=== PATIENT | male | born 1935 | race Caucasian/White ===

== ENCOUNTER 2016-10-14 01:13 | Inpatient (IN) ==
--- NOTE | 2016-10-14 03:00 | Emergency Department Note ---
Arrival - Arrival Chief Complaint: Syncope Stated Complaint: syncope ED Nursing Triage Note: pt was watching tv and had a sycopal episode witnessed by pt's family. 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 He went to a local emergency department where they found that his hemoglobin 6 his hematocrit was 21. His initial blood pressure was 90/50. He was given fluid resuscitation and sent to [facility] for blood transfusion and further evaluation. Allergies/Adverse Reactions: Allergies Allergy/AdvReac Type Severity Reaction Status Date / Time No Known Allergies Allergy Verified 09/15/16 14:26 Home Medications: Home Medications Medication Instructions Recorded Confirmed Type Docusate Sodium Cap [Colace Cap] 100 mg PO BEDTIME 09/15/16 10/14/16 History Docusate Sodium Cap [Colace Cap] 100 mg PO DAILY PRN 09/15/16 10/14/16 History Ergocalciferol (Vitamin D2) 50,000 units PO Q7DAY 09/15/16 10/14/16 History [Vitamin D2] Febuxostat [Uloric] 40 mg PO DAILY 09/15/16 10/14/16 History Finasteride [Proscar] 5 mg PO DAILY 09/15/16 10/14/16 History Iron,Carbonyl/Ascorbic Acid 1 tablet PO DAILY 09/15/16 10/14/16 History [Icar-C Tablet] Levothyroxine Tab [Synthroid Tab] 50 mcg PO DAILY 09/15/16 10/14/16 History Lisinopril 5 mg PO DAILY 09/15/16 10/14/16 History Metoprolol Tartrate 50 mg PO DAILY 09/15/16 10/14/16 History Tamsulosin [Flomax] 0.4 mg PO DAILY 09/15/16 10/14/16 History Pantoprazole Tab [Protonix Tab] 40 mg PO DAILY #30 tablet 09/25/16 10/14/16 Rx Ondansetron [Ondansetron Odt] 1 PO RT Q12H 10/14/16 History Prochlorperazine Tab [Compazine 1 PO Q4HR PRN 10/14/16 History Tab] Review of System - Review of System Constitutional: Absent: fever, night sweats Eyes: Absent: redness, vision change Head/Ears/Nose/Throat: Absent: epistaxis Respiratory: Absent: respiratory distress Cardiovascular: Absent: dyspnea on exertion, edema Gastrointestinal: Absent: diarrhea, constipation Genitourinary male: Absent: hematuria, discharge Musculoskeletal: Absent: joint swelling, lower back pain Skin: Absent: change in color, change in hair/nails Neurological: Absent: numbness, paresthesias Psychiatric: Absent: anxiety, suicidal thoughts Endocrine: Absent: heat intolerance, polydipsia Hematological/Lymphatic: Absent: easy bruising, lymphadenopathy Allergic/Immunologic: Absent: urticaria, itchy eyes Medical,Surgical,& Family Hx - Medical History Cardio: History of: Hypertension, Cardiovascular Problems (hx of atrial flutter) Comment Only: [place] (stents and triple bypass) Psychological: History of: Anxiety Disorders (takes meds) Neurology: No history of: Seizures HEENT: History of: Glaucoma (prior cataract surgery bilateral.) Endocrine: History of: Diabetes Mellitus (NIDDM) Genitourinary: History of: Prostate Problems Hematology: History of: Anemia - Surgical History Cardiac Surgeries: Sugical HX of: Cardiac Surgery (stents and triple bypass.) Abdominal Surgeries: Surgical HX of: Hernia Repair Orthopedic Surgeries: Surgical HX of;: Total Knee Replacement (left) - Social History Smoking Status: Never smoker Frequency of Alcohol Use: None Type of Drug Use: None Exam Vital Signs: Vital Signs Temperature 99.3 F 10/14/16 01:23 Pulse Rate 99 H 10/14/16 01:23 Respiratory Rate 16 10/14/16 01:39 Blood Pressure 106/62 10/14/16 01:23 O2 Sat by Pulse Oximetry 96 10/14/16 01:23 - General Exam limited due to: ALOC - Head Head exam: Present: atraumatic - Eye Eye exam: Present: PERRL, EOMI - ENT ENT exam: Present: normal exam - Neck Neck exam: Present: normal inspection - Chest Chest inspection: Present: normal inspection - Respiratory Respiratory exam: Present: normal lung sounds bilaterally - Cardiovascular Cardiovascular exam: Present: regular rate, normal rhythm - Abdominal Exam Abdominal exam: Present: soft, normal bowel sounds - Back Exam Back exam: Present: normal inspection - Neurological Exam Neurological exam: Present: alert, oriented X3 - Psychiatric Psychiatric exam: Present: normal affect, normal mood - Skin Skin exam: Present: warm, dry Course Course Narrative: The case was discussed with the oncologist who agreed to admit the patient and transfuse him as well as manage his oncology problems Disposition Clinical Impression: Acute myelogenous leukemia, Severe anemia, Syncope Disposition: Still a Patient Additional Instructions: The case was discussed with the oncologist who agreed to admit the patient and transfuse him as well as manage his oncology problems
[2016-10-14] MEDS ORDERED: SODIUM CHLORIDE 0.9% 250 ML IV PRN ×2 (03:05→08:56)
[2016-10-14] MEDS ORDERED: LACTULOSE 20 GM/30 ML UDCUP PO PRN (03:08)
[2016-10-14] MEDS ORDERED: chlorproMAZINE 25 MG TABLET PO PRN (03:08)
[2016-10-14] MEDS ORDERED: guaiFENesin 200 MG/10 ML UDCUP PO PRN (03:08)
[2016-10-14] MEDS ORDERED: LOPERAMIDE 2 MG CAPSULE PO PRN ×2 (03:08)
[2016-10-14] MEDS ORDERED: MYLANTA/LIDO VISC 2:1 300 ML BOTTLE SWISH/SPIT PRN (03:08)
[2016-10-14] MEDS ORDERED: chlorproMAZINE INJ 50 MG in SODIUM CHLORIDE 0.9% 100 ML IV PRN (03:08)
[2016-10-14] MEDS ORDERED: MAGNESIUM HYDROXIDE SUSP 30 ML UDCUP PO PRN (03:08)
[2016-10-14] MEDS ORDERED: ACETAMINOPHEN 325 MG TABLET PO PRN (03:08)
[2016-10-14] MEDS ORDERED: traMADol 50 MG TABLET PO PRN (03:08)
[2016-10-14] MEDS ORDERED: diphenhydrAMINE CAP 25 MG CAPSULE PO PRN (03:08)
[2016-10-14] MEDS ORDERED: ALPRAZolam 0.25 MG TABLET PO PRN (03:08)
[2016-10-14] MEDS ORDERED: ALUMINUM/MAGNES/SIMETH MAX STR 30 ML UDCUP PO PRN (03:08)
[2016-10-14] MEDS ORDERED: PROMETHAZINE INJ 25 MG in SODIUM CHLORIDE 0.9% 50 ML IV PRN (03:08)
[2016-10-14] MEDS ORDERED: chlorproMAZINE INJ 25 MG in SODIUM CHLORIDE 0.9% 100 ML IV PRN (03:08)
[2016-10-14] MEDS ORDERED: TEMAZEPAM 7.5 MG CAPSULE PO PRN (03:08)
[2016-10-14] MEDS ORDERED: BENZTROPINE 2 MG/2 ML AMP IV PRN (03:08)
[2016-10-14] MEDS ORDERED: MYLANTA/LIDO VISC 2:1 300 ML BOTTLE SWISH/SWAL PRN (03:08)
[2016-10-14 03:14] LABS: Basophils % 0.3 % (0.0-0.8); Hematocrit 22.7 VOL% (42.0-52.0); Hemoglobin 7.3 GM/DL (14.0-18.0); Immature Granulocytes % 1.4 %; Immature Granulocytes Absolute 0.04 #; Lymphocytes # 0.8 10*3/uL (1.4-4.0); Lymphocytes % 29.3 % (21.2-54.2); Mean Corpuscular HGB Conc 32.2 GM/DL (32-36); Mean Corpuscular Hemoglobin 32 PG (27-34); Mean Corpuscular Volume 98.3 FL (87-102); Mean Platelet Volume 13.1 FL (9.6-12.0); Monocytes # 1.2 10*3/uL (0.11-0.8); Monocytes % 42.5 % (1.7-12.7); NRBC # 0.04 10*3/uL; Neutrophils # 0.8 10*3/uL (1.4-7.4); Neutrophils % 26.5 % (38.7-73.9); Red Blood Count 2.31 MC/CUMM (3.8-5.5); Red Cell Distribution Width 17.9 % (9.3-17.3); White Blood Count 2.9 T/CUMM (4-12)
[2016-10-14 03:16] LABS: Platelet Count 19 T/CUMM (130-400)
--- NOTE | 2016-10-14 03:50 | EKG Report ---
Stationary ECG Study [facility] ER Test Date: 10/14/2016 2:10:16 AM Pat Name: GLEN PORRAS Department: Room: 422 Gender: M [employer] Effects Camera Operator: : [id number] Requested by: Sanjay Nathan Order Number: [id number] Reading MD: CHANTE HOFFMAN Intervals [place] Rate: 86 P: 999 NC: 0 QRS: 76 QRSD: 103 T: 161 QT: 318 QTc: 362 Interpretive Statements ATRIAL FIBRILLATION ST DEVIATION AND MODERATE T-WAVE ABNORMALITY, CONSIDER ANTEROLATERAL ISCHEMIA Electronically Signed On 10-14-16 16:17:45 CDT by CHANTE HOFFMAN [email or web address]
[2016-10-14 04:46] LABS: Band Neutrophils 2 % (0-10); Lymphocytes 73 % (20-55); Nucleated Red Blood Cells 2 (0-5); Platelet Estimate Decreased; Segmented Neutrophils 22 % (50-85); Total Cells Counted 100
[2016-10-14 04:47] LABS: Anisocytosis 1+; Basophilic Stippling Slight; Schistocytes Few
[2016-10-14] MEDS: SODIUM CHLORIDE 0.9% 1,000 ML IV SCH ×2 (05:55→21:21)
--- NOTE | 2016-10-14 07:32 | Oncology History&Physical ---
History of Present Illness Chief complaint: Syncope History of present illness: Mr. Crawford is a 81 year old male with acute myelogenous leukemia. He was started on Vidaza 150 mg subcu daily for 5 days beginning yesterday and he was anemic and I offered blood transfusion which he declined. He said that he would come back today. In the middle the night last night, he had a syncopal episode and was brought to the emergency room. He is admitted as outpatient observation presently for transfusion, a little further hydration and to continue Vidaza. I will plan to keep him at least overnight tonight while continuing his chemotherapy and transfusing him. 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 This is the reason he is receiving Vidaza. This is a very poor prognosis AML cytogenetically and because of the patient's other problems listed in his past medical history. Past medical history: He has no known allergies. His past medical history is positive for coronary artery disease, hypertension, hyperlipidemia, diabetes mellitus, congestive heart failure, gout, osteoarthritis, chronic pain and glaucoma. He also has a history of GERD, peripheral neuropathy, depression, hypothyroidism and kidney disease. He has been seen by Dr. Evans for his cardiac problems and Dr. Evans is aware of the patient's leukemia. Prior operations include a CABG, hemorrhoidectomy, knee replacement and hernia repair. Family history is positive for coronary artery disease in his brothers, lung cancer and one brother, coronary artery disease in his mother and father, lung cancer in a sister and cancer of unknown type and a sister. Social history he does not use alcohol. He is a former smoker. The patient's review of systems is downloaded into the electronic medical record from my office note which also is a portion of this patient's history and physical today. Positive review of systems includes decreased appetite, nasal congestion, irregular heartbeat and palpitations, chest pain that from his description could be angina, decreased appetite, heartburn and reflux, decreased urine output, dizziness and headaches, muscle weakness, anemia, leukopenia and thrombocytopenia. Physical examination: General: The patient is chronically ill-appearing but in no acute distress. Eyes: Lids and conjunctive are normal. ENT: Poor dentition. His hearing appears normal. His oral mucosa and pharynx are slightly dry. Neck: No masses. The thyroid is normal and the trachea is midline. Pulmonary: Chest motion is symmetrical with respiration and there is no tenderness. Breath sounds are coarse throughout without rubs, rales or rhonchi. Cardiovascular: Currently his heart rhythm is regular without murmur, gallop or rub. There is no jugular venous distention, clubbing or cyanosis. Abdomen: There are no abdominal masses, organomegaly, distention or tenderness. Musculoskeletal: He has arthritic changes in his hands and he is missing portions of a couple of digits. His gait has been unsteady. Neurologic: Cranial nerves II through XII are intact. There are no focal neurologic deficits. Nodes: No submental, cervical, supraclavicular or axillary adenopathy. Psychiatric: He has limited short-term memory although he is a very pleasant gentleman who on the surface appears fully oriented. Skin: He has ecchymoses below the elbows primarily but I see no petechiae. Diagnoses: Syncope secondary to anemia and multiple additional problems including COPD and cardiac disease. 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 Coronary artery disease HLD (hyperlipidemia) Hypertension Paroxysmal atrial flutter My plan currently is to continue Vidaza 150 mg subcu daily while transfusing him 2 units of packed red cells today. He may require platelet transfusions this week at some point. I will be checking lab work daily. Home Medications Medication Instructions Recorded Confirmed Type Docusate Sodium Cap [Colace Cap] 100 mg PO BID 09/15/16 10/14/16 History Ergocalciferol (Vitamin D2) 50,000 units PO Q7DAY 09/15/16 10/14/16 History [Vitamin D2] Febuxostat [Uloric] 40 mg PO DAILY PRN 09/15/16 10/14/16 History Finasteride [Proscar] 5 mg PO DAILY 09/15/16 10/14/16 History Iron,Carbonyl/Ascorbic Acid 1 tablet PO BID 09/15/16 10/14/16 History [Icar-C Tablet] Levothyroxine Tab [Synthroid Tab] 50 mcg PO DAILY 09/15/16 10/14/16 History Lisinopril 5 mg PO DAILY 09/15/16 10/14/16 History Metoprolol Tartrate 50 mg PO BID 09/15/16 10/14/16 History Tamsulosin [Flomax] 0.4 mg PO DAILY 09/15/16 10/14/16 History Hydrocodone/Acetaminophen 7.5 mg PO BID PRN 10/14/16 10/14/16 History [Hydrocodon-Acetaminoph 7.5-325] Ondansetron [Ondansetron Odt] 1 caplet PO RT Q12H 10/14/16 10/14/16 History Pantoprazole Tab [Protonix Tab] 40 mg PO DAILY 10/14/16 10/14/16 History Prochlorperazine Tab [Compazine 1 caplet PO QID PRN 10/14/16 10/14/16 History Tab] Allergies Allergy/AdvReac Type Severity Reaction Status Date / Time No Known Allergies Allergy Verified 10/14/16 05:49 Medical,Surgical,& Family Hx - Medical History Cardio: History of: Hypertension, Cardiovascular Problems (hx of atrial flutter) Comment Only: [place] (stents and triple bypass) Psychological: History of: Anxiety Disorders (takes meds) Neurology: No history of: Seizures HEENT: History of: Glaucoma (prior cataract surgery bilateral.) Endocrine: History of: Diabetes Mellitus (NIDDM) Genitourinary: History of: Prostate Problems Hematology: History of: Anemia Other: History of: Cancer (AML) - Surgical History Cardiac Surgeries: Sugical HX of: Cardiac Surgery (stents and triple bypass.) Abdominal Surgeries: Surgical HX of: Hernia Repair Orthopedic Surgeries: Surgical HX of;: Total Knee Replacement (left) - Social History Smoking Status: Never smoker Frequency of Alcohol Use: None Type of Drug Use: None Exam - Constitutional Vitals: Period Temp Pulse Resp BP Sys/Cisneros Pulse Ox Last 24 Hr 98.1 F-99.3 F 96-99 16-20 83-106/53-62 94-96 Results - Labs CBC & BMP: 10/14/16 02:33 10/14/16 02:33 Quality Measures - VTE Contraindication to Pharmacological VTE Prophylaxis: High Risk of Bleeding
[2016-10-14 07:45] LABS: Albumin 3.3 G/DL (3.4-5.0); Bilirubin,Total 0.7 MG/DL (0.2-1.0); Calcium 8.6 MG/DL (8.5-10.1); Magnesium 2.1 MG/DL (1.8-2.4); Osmolality,Calculated 282.8 MOS/KG (273-304); Total Protein 7.3 G/DL (6.4-8.3); Uric Acid 5.8 MG/DL (3.5-7.2)
--- NOTE | 2016-10-14 07:59 | Oncology Progress Note ---
Oncology Subjective PN Interval history: This is a progress note on dictated on October 13, 2016. I am copying it here because it was very difficult to find it and I wanted to be part of this patient 's chart for this admission. I recommended blood transfusion yesterday but he declined it and wanted to come back today. It does not appear that this note was readily available or easily accessible when the patient was seen in the emergency room earlier this morning. This is the reason I am copying this, for continuity of care. Acute myelogenous leukemia developing out of myelodysplastic syndrome: Mr. Crawford is here today for treatment of acute leukemia developing out of myelodysplastic syndrome. We are starting him on Vidaza. His AML is complicated by the fact that he developed from a myelodysplastic syndrome and by the fact that he has multiple additional diagnoses. White cell count today is 2200 with an absolute neutrophil count of 500 with a hemoglobin of 7.0 and a platelet count of 18,000. Anemia: He will be transfused 2 units of packed red cells today. Family history is positive for coronary artery disease in his brothers, lung cancer and one brother, coronary artery disease in his mother and father, lung cancer in a sister and cancer of unknown type and a sister. Social history he does not use alcohol. He is a former smoker. Past medical history diagnoses: Acute myelogenous leukemia with approximately 30-40% blasts: Leukopenia/neutropenia: Thrombocytopenia: Anemia: Peptic ulcer disease: Diabetes mellitus: Chronic renal failure, mild: Chronic anticoagulation we are discontinuing Eliquis on this patient and sending him home on low-dose aspirin, 81 mg daily. Coronary artery disease HLD (hyperlipidemia) Hypertension Paroxysmal atrial flutter On physical examination today he is his usual very pleasant self. General: He is chronically ill-appearing. Eyes: Normal lids and conjunctivae. ENT: Poor dentition. Trachea is midline. His hearing is normal. Lungs: Breath sounds are somewhat coarse with decreased breath sounds throughout the lung mcpherson and he has symmetrical chest motion with a prolonged expiratory phase of respiration. Cardiovascular: His heart rhythm is regular presently. No jugular venous distention or cyanosis. Abdomen: I cannot palpate his spleen. There are no abdominal masses or organomegaly. Musculoskeletal: He has significant arthritis of the hands. He also has some deformity of his fingers. Psychiatric: He appears to be fully oriented and alert with normal mood and affect. Neurologic: Cranial nerves II through XII are intact. There are no focal neurologic deficits. The plan is to give him 5 days a of the next 5 days and monitor him for toxicity. We will be transfusing packed red cells but we are going to give them tomorrow. He will possibly need platelets by transfusion before the end of the week. See orders. Exam - Constitutional Vitals: Period Temp Pulse Resp BP Sys/Cisneros Pulse Ox Last 24 Hr 98.1 F-99.3 F 96-99 16-20 83-106/53-62 94-96 Results - Labs CBC & BMP: 10/14/16 02:33 10/14/16 02:33 Quality Measures - VTE Contraindication to Pharmacological VTE Prophylaxis: High Risk of Bleeding
[2016-10-14] MEDS ORDERED: DEXAMETHASONE INJ 20 MG in SODIUM CHLORIDE 0.9% 50 ML IV ONE (08:20)
[2016-10-14] MEDS ORDERED: PROCHLORPERAZINE 10 MG TABLET PO PRN (08:36)
[2016-10-14] MEDS ORDERED: FEBUXOSTAT 80 MG TABLET PO PRN (08:36)
[2016-10-14] MEDS ORDERED: AZACITIDINE SUBCUT SCH ×3 (09:00)
[2016-10-14] MEDS ORDERED: ERGOCALCIFEROL 50,000 UNIT CAPSULE PO SCH (09:00)
[2016-10-14] MEDS: TAMSULOSIN 0.4 MG CAPSULE PO SCH (10:40)
[2016-10-14] MEDS: LISINOPRIL 5 MG TABLET PO SCH (10:41)
[2016-10-14] MEDS: LEVOTHYROXINE 50 MCG TABLET PO SCH (10:41)
[2016-10-14] MEDS: DOCUSATE SODIUM 100 MG CAPSULE PO SCH ×2 (10:41→21:19)
[2016-10-14] MEDS: IRON (CARBONYL)/VIT C/B12/FA TABLET PO SCH ×2 (10:41→21:20)
[2016-10-14] MEDS: PANTOPRAZOLE 40 MG TABLET PO SCH (10:41)
[2016-10-14] MEDS: METOPROLOL TARTRATE 50 MG TABLET PO SCH ×2 (10:41→21:20)
[2016-10-14] MEDS: FINASTERIDE 5 MG TABLET PO SCH (10:41)
[2016-10-14] MEDS: GRANISETRON 1 MG/1 ML VIAL IV SCH (10:49)
[2016-10-14] MEDS: DEXAMETHASONE INJ 20 MG in SODIUM CHLORIDE 0.9% 50 ML IV ONE ×2 (11:46→13:20)
[2016-10-14] MEDS: ONDANSETRON ODT 4 MG TABLET PO SCH ×2 (12:41→21:18)
[2016-10-14] MEDS: STERILE WATER SUBCUT SCH (12:42)
[2016-10-14] MEDS: AZACITIDINE SUBCUT SCH (12:42)
[2016-10-15] MEDS: ONDANSETRON 4 MG/2 ML VIAL IV PRN ×3 (02:58→19:43)
[2016-10-15] MEDS: SODIUM CHLORIDE 0.9% 1,000 ML IV SCH ×3 (06:13→19:43)
[2016-10-15 07:17] LABS: Basophils % 0.9 % (0.0-0.8); Hematocrit 24.7 VOL% (42.0-52.0); Hemoglobin 8.2 GM/DL (14.0-18.0); Immature Granulocytes % 1.3 %; Immature Granulocytes Absolute 0.03 #; Lymphocytes # 0.7 10*3/uL (1.4-4.0); Lymphocytes % 28.3 % (21.2-54.2); Mean Corpuscular HGB Conc 33.2 GM/DL (32-36); Mean Corpuscular Hemoglobin 32 PG (27-34); Mean Corpuscular Volume 95.4 FL (87-102); Monocytes # 0.8 10*3/uL (0.11-0.8); Monocytes % 33.9 % (1.7-12.7); NRBC # 0.05 10*3/uL; Neutrophils # 0.8 10*3/uL (1.4-7.4); Neutrophils % 35.6 % (38.7-73.9); Red Blood Count 2.59 MC/CUMM (3.8-5.5); Red Cell Distribution Width 17.2 % (9.3-17.3); White Blood Count 2.3 T/CUMM (4-12)
[2016-10-15 07:27] LABS: Platelet Count 18 T/CUMM (130-400)
[2016-10-15 07:49] LABS: Albumin 3.1 G/DL (3.4-5.0); Bilirubin,Total 1.6 MG/DL (0.2-1.0); Osmolality,Calculated 288.4 MOS/KG (273-304); Potassium 4.9 MMOL/L (3.5-5.1)
--- NOTE | 2016-10-15 07:49 | Oncology Progress Note ---
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 Crawford is a 81 year old male with acute myelogenous leukemia. He was started on Vidaza 150 mg subcu daily for 5 days beginning yesterday and he was anemic and I offered blood transfusion which he declined. He said that he would come back today. In the middle the night last night, he had a syncopal episode and was brought to the emergency room. He is admitted as outpatient observation presently for transfusion, a little further hydration and to continue Vidaza. I will plan to keep him at least overnight tonight while continuing his chemotherapy and transfusing him. 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 This is the reason he is receiving Vidaza. This is a very poor prognosis AML cytogenetically and because of the patient's other problems listed in his past medical history. He is on Vidaza 150 mg subcu daily for 5 days and he was transfused yesterday. Leukopenia/neutropenia: White cell count 2300 Thrombocytopenia: Platelet count 18,000 Anemia: Hemoglobin 8.2. I have ordered 2 more units of packed red cells. Additional diagnoses: Peptic ulcer disease: Diabetes mellitus: Chronic renal failure, mild: Chronic anticoagulation we are discontinuing Eliquis on this patient and sending him home on low-dose aspirin, 81 mg daily. Coronary artery disease HLD (hyperlipidemia) Hypertension Paroxysmal atrial flutter Comprehensive metabolic profile pending. I am ordering it stat. Electrolytes normal. Serum creatinine 1.5. Alkaline phosphatase and LDH relatively stable. Serum creatinine 1.6. Physical examination: Chronically ill-appearing but in no acute distress. Eyes: Normal lids and conjunctivae. ENT: Oral mucosa and pharynx normal.Hearing normal. Neck: Trachea midline. No neck masses. Lungs: Significantly decreased breath sounds throughout both lung mcpherson with prolonged expiratory phase of respiration but I hear no rubs, rales or rhonchi. Cardiovascular: Heart rhythm regular without murmur, gallop or rub. No jugular venous distention, clubbing or cyanosis. Neurologic: Cranial nerves II through XII are intact. No focal neurologic deficits. Psychiatric: Some short-term memory loss but relatively oriented and alert otherwise. Exam - Constitutional Vitals: Period Temp Pulse Resp BP Sys/Cisneros Pulse Ox Last 24 Hr 97.1 F-98.8 F 94-100 16-20 90-136/50-76 90-96 Results - Labs CBC & BMP: 10/15/16 06:53 10/15/16 06:53 Quality Measures - VTE Contraindication to Pharmacological VTE Prophylaxis: High Risk of Bleeding
[2016-10-15] MEDS ORDERED: SODIUM CHLORIDE 0.9% 250 ML IV PRN (07:52)
[2016-10-15 08:26] LABS: Band Neutrophils 2 % (0-10); Lymphocytes 42 % (20-55); Myelocytes 2 %; Nucleated Red Blood Cells 1 (0-5); Segmented Neutrophils 40 % (50-85); Total Cells Counted 100
[2016-10-15 08:27] LABS: Anisocytosis 1+; Hypochromasia 1+; Microcytosis 1+
[2016-10-15 08:28] LABS: Ovalocytes Slight; Platelet Estimate Decreased; Tear Drop Cells Slight
[2016-10-15] MEDS: FINASTERIDE 5 MG TABLET PO SCH (08:38)
[2016-10-15] MEDS: GRANISETRON 1 MG/1 ML VIAL IV SCH (08:38)
[2016-10-15] MEDS: ONDANSETRON ODT 4 MG TABLET PO SCH (08:38)
[2016-10-15] MEDS: METOPROLOL TARTRATE 50 MG TABLET PO SCH (08:38)
[2016-10-15] MEDS: TAMSULOSIN 0.4 MG CAPSULE PO SCH (08:39)
[2016-10-15] MEDS: DOCUSATE SODIUM 100 MG CAPSULE PO SCH (08:39)
[2016-10-15] MEDS: PANTOPRAZOLE 40 MG TABLET PO SCH (08:39)
[2016-10-15] MEDS: LISINOPRIL 5 MG TABLET PO SCH (08:39)
[2016-10-15] MEDS: IRON (CARBONYL)/VIT C/B12/FA TABLET PO SCH (08:39)
[2016-10-15] MEDS: LEVOTHYROXINE 50 MCG TABLET PO SCH (08:39)
[2016-10-15] MEDS ORDERED: AZACITIDINE SUBCUT SCH (09:00)
[2016-10-15 09:18] LABS: Albumin 3.1 G/DL (3.4-5.0); Calcium 8.9 MG/DL (8.5-10.1); Osmolality,Calculated 287.5 MOS/KG (273-304); Potassium 4.7 MMOL/L (3.5-5.1); Total Protein 6.9 G/DL (6.4-8.3)
[2016-10-15] MEDS: STERILE WATER SUBCUT SCH (09:52)
[2016-10-15] MEDS: AZACITIDINE SUBCUT SCH (09:52)
[2016-10-16] MEDS: ONDANSETRON ODT 4 MG TABLET PO SCH ×3 (00:36→20:51)
[2016-10-16] MEDS: DOCUSATE SODIUM 100 MG CAPSULE PO SCH ×3 (00:36→20:51)
[2016-10-16] MEDS: METOPROLOL TARTRATE 50 MG TABLET PO SCH ×3 (00:36→20:51)
[2016-10-16] MEDS: IRON (CARBONYL)/VIT C/B12/FA TABLET PO SCH ×3 (00:36→20:51)
[2016-10-16 04:23] LABS: Basophils # 0.1 10*3/uL (0.0-0.2); Basophils % 1.9 % (0.0-0.8); Hematocrit 31.2 VOL% (42.0-52.0); Hemoglobin 10.5 GM/DL (14.0-18.0); Immature Granulocytes % 2.1 %; Immature Granulocytes Absolute 0.08 #; Lymphocytes # 0.9 10*3/uL (1.4-4.0); Lymphocytes % 23.3 % (21.2-54.2); Mean Corpuscular HGB Conc 33.7 GM/DL (32-36); Mean Corpuscular Hemoglobin 32 PG (27-34); Monocytes # 1.5 10*3/uL (0.11-0.8); Monocytes % 40.5 % (1.7-12.7); NRBC # 0.06 10*3/uL; Neutrophils # 1.2 10*3/uL (1.4-7.4); Neutrophils % 32.2 % (38.7-73.9); Red Blood Count 3.32 MC/CUMM (3.8-5.5); Red Cell Distribution Width 17.8 % (9.3-17.3); White Blood Count 3.7 T/CUMM (4-12)
[2016-10-16 04:30] LABS: Platelet Count 20 T/CUMM (130-400)
[2016-10-16 04:56] LABS: Albumin 3.4 G/DL (3.4-5.0); Bilirubin,Total 1.6 MG/DL (0.2-1.0); Calcium 9.4 MG/DL (8.5-10.1); Potassium 4.4 MMOL/L (3.5-5.1); Total Protein 7.1 G/DL (6.4-8.3)
[2016-10-16] MEDS: SODIUM CHLORIDE 0.9% 1,000 ML IV SCH ×2 (05:12→14:45)
[2016-10-16 05:22] LABS: Atypical Lymphocytes 3+; Band Neutrophils 2 % (0-10); Lymphocytes 57 % (20-55); Nucleated Red Blood Cells 2 (0-5); Platelet Estimate Decreased; Reactive Lymphocytes 3+; Segmented Neutrophils 37 % (50-85); Total Cells Counted 100
--- NOTE | 2016-10-16 07:25 | Oncology Progress Note ---
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 Crawford is a 81 year old male with acute myelogenous leukemia. He was started on Vidaza 150 mg subcu daily for 5 days beginning yesterday and he was anemic and I offered blood transfusion which he declined. He said that he would come back today. In the middle the night last night, he had a syncopal episode and was brought to the emergency room. He is admitted as outpatient observation presently for transfusion, a little further hydration and to continue Vidaza. 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 This is the reason he is receiving Vidaza. This is a very poor prognosis AML cytogenetically and because of the patient's other problems listed in his past medical history. He is on Vidaza 150 mg subcu daily for 5 days. Leukopenia/neutropenia: White cell count is 3700 with an ANC of 1200. Thrombocytopenia: Platelet count 20,000 Anemia: Hemoglobin 10.5 today after transfusion. Additional diagnoses: Peptic ulcer disease: Diabetes mellitus: Chronic renal failure, mild: Chronic anticoagulation we are discontinuing Eliquis on this patient and sending him home on low-dose aspirin, 81 mg daily. Coronary artery disease HLD (hyperlipidemia) Hypertension Paroxysmal atrial flutter Physical examination: General: He is chronically and acutely ill. Eyes: Normal lids and conjunctivae. ENT: His oral mucosa is normal. His teeth are in poor repair. Neck: No neck masses. Thyroid normal. Lungs: Very coarse breath sounds throughout without rubs, rales or rhonchi. His chest moves symmetrically with respiration Cardiovascular: His heart rhythm is irregular without murmur, gallop or rub. There is no jugular venous distention, clubbing or cyanosis. Abdomen: No abdominal masses, organomegaly, distention, tenderness or ascites. Neurologic: Cranial nerves II through XII are intact. The no focal neurologic deficits. Psychiatric: The patient appears to be oriented and alert but he has short-term memory loss. Exam - Constitutional Vitals: Period Temp Pulse Resp BP Sys/Cisneros Pulse Ox Last 24 Hr 97.2 F-98.6 F 98-109 18-22 121-144/62-92 90-94 Results - Labs CBC & BMP: 10/16/16 03:50 10/16/16 03:50 Quality Measures - VTE Contraindication to Pharmacological VTE Prophylaxis: High Risk of Bleeding
[2016-10-16] MEDS: GRANISETRON 1 MG/1 ML VIAL IV SCH (08:11)
[2016-10-16] MEDS: PANTOPRAZOLE 40 MG TABLET PO SCH (08:12)
[2016-10-16] MEDS: FINASTERIDE 5 MG TABLET PO SCH (08:12)
[2016-10-16] MEDS: TAMSULOSIN 0.4 MG CAPSULE PO SCH (08:12)
[2016-10-16] MEDS: LEVOTHYROXINE 50 MCG TABLET PO SCH (08:12)
[2016-10-16] MEDS: LISINOPRIL 5 MG TABLET PO SCH (08:12)
--- NOTE | 2016-10-16 10:16 | Physician Query Form ---
CLICK EDIT DOCUMENT TO SELECT QUERY ANSWER --> OK --> SIGN Daniela Radford RN Clinical [employer] W) [phone] (f) [phone] [email or web address] PROVIDERS: Make your selection(s) from the choices in EACH section by typing an "x" and enter comments in the comment section. Please use your independent medical judgment in providing your response. This request does not imply that any particular answer is desired or expected. CLINICAL INDICATORS: (Providers should not edit this section) Based on lab results of creatinine on admission of 1.50 and increased to 1.80 with a GFR of 46. Pt. treated with IV fluids of Normal Saline. Pt. has a history of chronic renal failure. Clarify which of the following most accurately represents the patient's renal status: ( ) Acute kidney injury (non-traumatic) ( ) Acute renal failure ( ) Acute renal failure with underlying Chronic Kidney Disease (CKD) - please provide stage below ( ) CKD - please provide stage below ( ) Other, please specify: ( ) Clinically unable to determine Chronic Kidney Disease Stages Source: National Kidney Disease Foundation ( ) Stage I (eGFR > or = 90) ( ) Stage II (eGFR 60 - 89) ( ) Stage III (eGFR 30 - 59) ( ) Stage IV (eGFR 15 - 29) ( ) Stage V (eGFR < 15 or dialysis) COMMENTS: PLEASE ALSO DOCUMENT RESPONSE IN PROGRESS NOTES AND/OR DISCHARGE SUMMARY Use of terms such as suspected, likely, or probable (associated with a specific diagnosis that is being evaluated, monitored, or treated as if it exists) are acceptable and can be restated in the discharge summary if not ruled out. MTDD
--- NOTE | 2016-10-16 10:22 | Physician Query Form ---
CLICK EDIT DOCUMENT TO SELECT QUERY ANSWER --> OK --> SIGN Daniela Radford RN Clinical Human Services Assistant W) [phone] (f) [phone] [email or web address] PROVIDERS: Make your selection(s) from the choices in EACH section by typing an "x" and enter comments in the comment section. Please use your independent medical judgment in providing your response. This request does not imply that any particular answer is desired or expected. CLINICAL INDICATORS: (Providers should not edit this section) Based on documentation of " He was started on Vidaza 150 mg sub-q daily for 5 days beginning yesterday and he was anemic". WBC=2.3, RBC=2.59, PLT=18. Based on the above, could you clarify the appropriate diagnosis, if significant , that supports the above abnormalities and additional evaluation, monitoring, and/or treatment rendered: ( ) Pt. has chemo induced pancytopenia ( ) Pt. has pancytopenia ( ) Other, please specify: ( ) Clinically unable to determine COMMENTS: PLEASE ALSO DOCUMENT RESPONSE IN PROGRESS NOTES AND/OR DISCHARGE SUMMARY Use of terms such as suspected, likely, or probable (associated with a specific diagnosis that is being evaluated, monitored, or treated as if it exists) are acceptable and can be restated in the discharge summary if not ruled out. MTDD
[2016-10-16] MEDS: ONDANSETRON 4 MG/2 ML VIAL IV PRN ×2 (10:54→18:54)
[2016-10-16] MEDS: STERILE WATER SUBCUT SCH (11:50)
[2016-10-16] MEDS: AZACITIDINE SUBCUT SCH (11:50)
[2016-10-17 05:28] LABS: Basophils # 0.1 10*3/uL (0.0-0.2); Basophils % 1.7 % (0.0-0.8); Hematocrit 31.4 VOL% (42.0-52.0); Hemoglobin 10.4 GM/DL (14.0-18.0); Immature Granulocytes % 2.2 %; Immature Granulocytes Absolute 0.09 #; Lymphocytes # 1.1 10*3/uL (1.4-4.0); Lymphocytes % 26.7 % (21.2-54.2); Mean Corpuscular HGB Conc 33.1 GM/DL (32-36); Mean Corpuscular Hemoglobin 31 PG (27-34); Mean Corpuscular Volume 94.6 FL (87-102); Monocytes # 1.4 10*3/uL (0.11-0.8); Monocytes % 34.5 % (1.7-12.7); NRBC # 0.06 10*3/uL; Neutrophils # 1.4 10*3/uL (1.4-7.4); Neutrophils % 34.9 % (38.7-73.9); Red Blood Count 3.32 MC/CUMM (3.8-5.5); Red Cell Distribution Width 17.5 % (9.3-17.3); White Blood Count 4.1 T/CUMM (4-12)
[2016-10-17] MEDS: SODIUM CHLORIDE 0.9% 1,000 ML IV SCH ×2 (05:29→16:11)
[2016-10-17] MEDS: ONDANSETRON 4 MG/2 ML VIAL IV PRN (05:29)
[2016-10-17 05:31] LABS: Platelet Count 23 T/CUMM (130-400)
[2016-10-17 06:02] LABS: Albumin 3.1 G/DL (3.4-5.0); Bilirubin,Total 2.8 MG/DL (0.2-1.0); Osmolality,Calculated 291.3 MOS/KG (273-304); Potassium 4.3 MMOL/L (3.5-5.1); Total Protein 6.6 G/DL (6.4-8.3)
[2016-10-17 06:24] LABS: Band Neutrophils 2 % (0-10); Metamyelocytes 2 %; Nucleated Red Blood Cells 1 (0-5); Total Cells Counted 100
[2016-10-17 06:25] LABS: Lymphocytes 27 % (20-55); Segmented Neutrophils 38 % (50-85)
[2016-10-17 06:26] LABS: Platelet Estimate Decreased
--- NOTE | 2016-10-17 07:51 | Oncology Progress Note ---
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 Crawford is a 81 year old male with acute myelogenous leukemia. He was started on Vidaza 150 mg subcu daily for 5 days beginning 10-13-2016 and he was anemic and I offered blood transfusion which he declined. He said that he would come back today. In the middle the night last night, he had a syncopal episode and was brought to the emergency room. He is admitted as outpatient observation presently for transfusion, a little further hydration and to continue Vidaza. We subsequently hospitalized him to complete the Vidaza chemotherapy. Mr. Crawford's blood work is improving on Vidaza. His white cell count today is up to 4100 with an absolute neutrophil count of 1400. His hemoglobin is 10.4 which is stable. His platelet count has risen to 23,000.LDH is 481. Total bilirubin is 2.8. 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 This is the reason he is receiving Vidaza. This is a very poor prognosis AML cytogenetically and because of the patient's other problems listed in his past medical history. He is on Vidaza 150 mg subcu daily for 5 days. Leukopenia/neutropenia: White cell count is improving. His white cell count is up to 4100 today with an absolute neutrophil count of 1400. Thrombocytopenia: Platelet count 20,000 Anemia: Hemoglobin 10.5 today after transfusion. Additional diagnoses: Peptic ulcer disease: He has had no GI bleeding during this hospital stay. Diabetes mellitus: Chronic renal failure, mild:He has stable chronic renal failure with a serum creatinine of 1.8. Chronic anticoagulation we are discontinuing Eliquis on this patient and sending him home on low-dose aspirin, 81 mg daily. Coronary artery disease HLD (hyperlipidemia) Hypertension Paroxysmal atrial flutter Exam - Constitutional Vitals: Period Temp Pulse Resp BP Sys/Cisneros Pulse Ox Last 24 Hr 97.1 F-98.5 F 74-111 18-22 130-142/78-97 91-100 Results - Labs CBC & BMP: 10/17/16 04:14 10/17/16 04:14 Quality Measures - VTE Contraindication to Pharmacological VTE Prophylaxis: High Risk of Bleeding
--- NOTE | 2016-10-17 08:16 | Discharge Summary ---
Hospital Course - Time spent with patient Time with patient DS: Greater than 30 minutes (Multiple problems addressed) Specialty Discharge - Follow Up or Referrals Follow up with: Alexei Smith MD [Physician] - Discharge Plan - Discharge Data Disposition: Disch To Home/Self Care Condition at Discharge: Guarded Discharge Diet: advance to your usual diet Activity: resume usual activities as tolerated Hygiene: no restrictions Weight Bearing at Discharge: weight bear as tolerated Driving: other Contact your physician if you experience:: fever over 101 (CBC and CMP and LDH at my office in 1 week and 2 weeks. Appointment to see me in 3 weeks with CBC, CMP and LDH.), Difficulty voiding, Redness or swelling, Nausea/Vomiting, Shortness of breath, Bleeding, pain uncontrolled by pain medications - Discharge Medications Continue Docusate Sodium Cap [Colace Cap] 100 mg PO BID Febuxostat [Uloric] 40 mg PO DAILY PRN PRN Reason: Gout Ergocalciferol (Vitamin D2) [Vitamin D2] 50,000 units PO Q7DAY Metoprolol Tartrate 50 mg PO BID Lisinopril 5 mg PO DAILY Levothyroxine Tab [Synthroid Tab] 50 mcg PO DAILY Finasteride [Proscar] 5 mg PO DAILY Prochlorperazine Tab [Compazine Tab] 1 caplet PO QID PRN PRN Reason: Nausea Ondansetron [Ondansetron Odt] 1 caplet PO RT Q12H Pantoprazole Tab [Protonix Tab] 40 mg PO DAILY Tamsulosin [Flomax] 0.4 mg PO DAILY Iron,Carbonyl/Ascorbic Acid [Icar-C Tablet] 1 tablet PO BID Hydrocodone/Acetaminophen [Hydrocodon-Acetaminoph 7.5-325] 7.5 mg PO BID PRN PRN Reason: Pain - Follow Up or Referral Follow Up: Alexei Smith MD [Physician] - - Forms/Instructions Additional Discharge Instructions: CBC and CMP at my office weekly. Appointment to see me in 3 weeks with CBC, CMP, LDH and red top tube. Exam - Constitutional Vitals: Period Temp Pulse Resp BP Sys/Cisneros Pulse Ox Last 24 Hr 97.1 F-98.5 F 74-111 18-22 130-142/78-97 91-100 Discharge Results Procedures and tests throughout hospitalization: Pending Orders 10/14/16 03:09 Urinalysis Routine 10/18/16 04:00 Comp Blood Count Auto Diff IN AM Comprehensive Metabolic Panel IN AM LDH [Lactate Dehydrogenase] IN AM 10/19/16 04:00 Comp Blood Count Auto Diff IN AM Comprehensive Metabolic Panel IN AM LDH [Lactate Dehydrogenase] IN AM 10/20/16 04:00 Comp Blood Count Auto Diff IN AM Comprehensive Metabolic Panel IN AM Labs on day of discharge: Labs from last 24 hours 10/17/16 10/17/16 04:14 04:14 WBC 4.1 RBC 3.32 L Hgb 10.4 L Hct 31.4 L MCV 94.6 MCH 31 MCHC 33.1 RDW 17.5 H Plt Count 23 L* Neut % (Auto) 34.9 L Lymph % (Auto) 26.7 Loving % (Auto) 34.5 H Eos % (Auto) 0.0 Baso % (Auto) 1.7 H Neut # (Auto) 1.4 Lymph # (Auto) 1.1 L Loving # (Auto) 1.4 H Eos # (Auto) 0.0 Baso # (Auto) 0.1 Total Counted 100 Immature Gran % 2.2 Nucleated RBC % 1.5 Immature Gran # 0.09 Segmented Neutrophils 38 L Band Neutrophils 2 Lymphocytes 27 Monocytes 31 H Metamyelocytes 2 Nucleated RBCs 1 Nucleated RBCs # 0.06 Platelet Estimate Decreased Immature Plt Fraction 0.0 Sodium 141 Potassium 4.3 Chloride 110 H Carbon Dioxide 23 Anion Gap 12.3 BUN 31 H Creatinine 1.80 H GFR Calculation 46 BUN/Creatinine Ratio 17.00 Glucose 167 H Calculated Osmolality 291.3 Calcium 9.0 Total Bilirubin 2.80 H AST 104 H ALT 72 H Alkaline Phosphatase 114 Lactate Dehydrogenase 481 H Total Protein 6.6 Albumin 3.1 L Globulin 3.5 Albumin/Globulin Ratio 0.8 L DS: Provider Date of admission: 10/14/16 03:08 Diagnoses: 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 Crawford is a 81 year old male with acute myelogenous leukemia. He was started on Vidaza 150 mg subcu daily for 5 days beginning 10-13-2016 and he was anemic and I offered blood transfusion which he declined. He said that he would come back today. In the middle the night last night, he had a syncopal episode and was brought to the emergency room. He is admitted as outpatient observation presently for transfusion, a little further hydration and to continue Vidaza. We subsequently hospitalized him to complete the Vidaza chemotherapy. Mr. Crawford's blood work is improving on Vidaza. His white cell count today is up to 4100 with an absolute neutrophil count of 1400. His hemoglobin is 10.4 which is stable. His platelet count has risen to 23,000.LDH is 481. Total bilirubin is 2.8. 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 This is the reason he is receiving Vidaza. This is a very poor prognosis AML cytogenetically and because of the patient's other problems listed in his past medical history. He is on Vidaza 150 mg subcu daily for 5 days. Leukopenia/neutropenia: White cell count is improving. His white cell count is up to 4100 today with an absolute neutrophil count of 1400. Thrombocytopenia: Platelet count 20,000 Anemia: Hemoglobin 10.5 today after transfusion. Additional diagnoses: Peptic ulcer disease: He has had no GI bleeding during this hospital stay. Diabetes mellitus: Chronic renal failure, mild:He has stable chronic renal failure with a serum creatinine of 1.8. Chronic anticoagulation we are discontinuing Eliquis on this patient and sending him home on low-dose aspirin, 81 mg daily. Coronary artery disease HLD (hyperlipidemia) Hypertension Paroxysmal atrial flutter I have instructed the patient to be sure that his liquid intake is at least 4 pints daily. This is because his serum creatinine has risen somewhat. I had a discussion with his yesterday and I explained to her that the 5 days ago would be a temporizing measure. I do not anticipate sustaining him for very long with this treatment because he has so many other chronic illnesses that could deteriorate rapidly and could possibly be fatal. Primary care physician: Viet Hylton DO Attending physician on admission: Alexei Smith MD Discharging clinician: Alexei Smith MD
[2016-10-17] MEDS ORDERED: ERGOCALCIFEROL 50,000 UNIT CAPSULE PO SCH (09:00)
[2016-10-17] MEDS: LEVOTHYROXINE 50 MCG TABLET PO SCH (09:26)
[2016-10-17] MEDS: DOCUSATE SODIUM 100 MG CAPSULE PO SCH (09:26)
[2016-10-17] MEDS: PANTOPRAZOLE 40 MG TABLET PO SCH (09:26)
[2016-10-17] MEDS: ONDANSETRON ODT 4 MG TABLET PO SCH (09:26)
[2016-10-17] MEDS: FINASTERIDE 5 MG TABLET PO SCH (09:27)
[2016-10-17] MEDS: LISINOPRIL 5 MG TABLET PO SCH (09:27)
[2016-10-17] MEDS: METOPROLOL TARTRATE 50 MG TABLET PO SCH (09:27)
[2016-10-17] MEDS: TAMSULOSIN 0.4 MG CAPSULE PO SCH (09:28)
[2016-10-17] MEDS: IRON (CARBONYL)/VIT C/B12/FA TABLET PO SCH (09:32)
--- NOTE | 2016-10-17 11:05 | Physician Query Form ---
CLICK EDIT DOCUMENT TO SELECT QUERY ANSWER --> OK --> SIGN Daniela Radford RN Clinical Renewal Specialist W) [phone] (f) [phone] [email or web address]: Make your selection(s) from the choices in EACH section by typing an "x" and enter comments in the comment section. Please use your independent medical judgment in providing your response. This request does not imply that any particular answer is desired or expected. CLINICAL INDICATORS: (Providers should not edit this section) Based on lab results of creatinine on admission of 1.50 and increased to 1.80 with a GFR of 46. Pt. treated with IV fluids of Normal Saline. Pt. has a history of chronic renal failure. Clarify which of the following most accurately represents the patient's renal status: ( ) Acute kidney injury (non-traumatic) ( ) Acute renal failure ( ) Acute renal failure with underlying Chronic Kidney Disease (CKD) - please provide stage below ( ) CKD - please provide stage below ( ) Other, please specify: ( x) Clinically unable to determine Chronic Kidney Disease Stages Source: [employer] ( ) Stage I (eGFR > or = 90) ( ) Stage II (eGFR 60 - 89) ( ) Stage III (eGFR 30 - 59) ( ) Stage IV (eGFR 15 - 29) ( ) Stage V (eGFR < 15 or dialysis) COMMENTS: PLEASE ALSO DOCUMENT RESPONSE IN PROGRESS NOTES AND/OR DISCHARGE SUMMARY Use of terms such as suspected, likely, or probable (associated with a specific diagnosis that is being evaluated, monitored, or treated as if it exists) are acceptable and can be restated in the discharge summary if not ruled out. MTDD
--- NOTE | 2016-10-17 11:06 | Physician Query Form ---
CLICK EDIT DOCUMENT TO SELECT QUERY ANSWER --> OK --> SIGN Daniela Radford RN Clinical Rn Ostomy W) [phone] (f) [phone] [email or web address]: Make your selection(s) from the choices in EACH section by typing an "x" and enter comments in the comment section. Please use your independent medical judgment in providing your response. This request does not imply that any particular answer is desired or expected. CLINICAL INDICATORS: (Providers should not edit this section) Based on documentation of " He was started on Vidaza 150 mg sub-q daily for 5 days beginning yesterday and he was anemic". WBC=2.3, RBC=2.59, PLT=18. Based on the above, could you clarify the appropriate diagnosis, if significant , that supports the above abnormalities and additional evaluation, monitoring, and/or treatment rendered: ( ) Pt. has chemo induced pancytopenia ( ) Pt. has pancytopenia (x ) Other, please specify: ( ) Clinically unable to determine COMMENTS: Pancytopenia was from the anemia as well as possibly the chemotherapy and also from chronic disease as well as a history of GI blood loss that is documented in the chart from a previous hospital stay. PLEASE ALSO DOCUMENT RESPONSE IN PROGRESS NOTES AND/OR DISCHARGE SUMMARY Use of terms such as suspected, likely, or probable (associated with a specific diagnosis that is being evaluated, monitored, or treated as if it exists) are acceptable and can be restated in the discharge summary if not ruled out. MTDD
[2016-10-17] MEDS: GRANISETRON 1 MG/1 ML VIAL IV SCH (11:32)
[2016-10-17] MEDS: STERILE WATER SUBCUT SCH (11:57)
[2016-10-17] MEDS: AZACITIDINE SUBCUT SCH (11:57)
[2016-10-17 14:42] VITALS: BP 129/82
== END 2016-10-17 12:35 | disposition home or self-care (01) | DRG 834 ==
LOC: EDUNIT# → EDBD → N.ED 01:13 → N.EDINP 03:08 → N.4E 03:33
PROVIDERS: ADMIT Specialist; ATTEND Specialist